=== PATIENT | male | born 1960 | race Caucasian/White ===

== ENCOUNTER 2017-01-25 10:41 | Emergency (ER) | payer OTHER ==
[~2017-01-25] VITALS: Ht 170.2 cm; Wt 83.5 kg
[2017-01-25 10:55] VITALS: Ht 170.2 cm; Wt 83.5 kg
[2017-01-25] MEDS ORDERED: AMOX500C2 PO (11:40)
--- NOTE | 2017-01-25 15:13 | ERD ---
ER Documentation Chief Complaint Chief Complaint RIGHT EAR PAIN HPI This is a 56-year-old male presenting to the emergency department for right earache 7 days. Patient states he began having muffled hearing to right ear and pain became worse over the last 3-4 days. Patient is now having pain rated 7/10 to right ear and describes pain as throbbing. Denies any discharge or bleeding. No cough, shortness breath or difficulty breathing. No sore throat or difficulty swallowing. No rhinitis or rhinorrhea. Patient states he went to his primary care provider and was told he has to go to an ENT specialist. Patient is now waiting for referral to see specialist. No past medical or surgical history. Patient takes no medications. ROS All systems reviewed and are negative except as per history of present illness. Medications Home Meds Active Scripts Amoxicillin* (Amoxicillin*) 500 Mg Cap, 500 MG PO TID for 10 Days, CAP Prov:NGUYEN MENDEZ NP 01/25/17 Allergies Allergies: Coded Allergies: No Known Allergy (Unverified , 01/25/17) PMhx/Soc Medical and Surgical Hx: pt denies Medical Hx, pt denies Surgical Hx Hx Alcohol Use: Yes Hx Substance Use: No Hx Tobacco Use: No Physical Exam Vitals Vital Signs Date Time Temp Pulse Resp B/P Pulse Ox O2 Delivery O2 Flow Rate FiO2 01/25/17 10:55 98.6 77 19 121/83 97 Physical Exam Const: No acute distress, alert Head: Atraumatic Eyes: Normal Conjunctiva ENT: Normal External Ears, Nose and Mouth. TMs normal bilaterally. No erythema or exudate posterior pharynx. No peritonsillar abscess. Neck: Full range of motion..~ No meningismus. Resp: Clear to auscultation bilaterally. No wheezing, rhonchi or crackles. No stridor or labored breathing. Cardio: Regular rate and rhythm, no murmurs Abd: Soft, non tender, non distended. Normal bowel sounds Skin: No petechiae or rashes Back: No midline or flank tenderness Ext: No cyanosis, or edema Neur: Awake and alert Psych: Normal Mood and Affect Procedures/MDM MDM: This is a 56-year-old male presenting to emergency department for right- sided earache 7 days. On physical exam TMs normal bilaterally. No mastoid tenderness. No facial swelling. Patient is afebrile and vital signs are stable. Patient is alert and nontoxic-appearing patient is waiting to see ENT specialist. Low suspicion for mastoiditis. Differential diagnosis includes but not limited to otitis media, otitis externa, viral pharyngitis, strep pharyngitis, dental pain, tooth abscess, TMJ, cerumen impaction and earache not otherwise specified. Patient is appropriate for outpatient management only given prescription for amoxicillin. Patient has possible acute otitis media. Patient will be treated for this and sent to ENT for reassessment and additional management. Resources provided. Return to ED for any high fever, chest pain, difficulty breathing, shortness breath, wheezing, vomiting, diarrhea, abdominal pain or any new or worsening symptoms. Patient verbalizes understanding. All questions answered at discharge. Slovak translation used during this encounter. Disclaimer: Inadvertent spelling and grammatical errors are likely due to EHR/ dictation software use and do not reflect on the overall quality of patient care. Also, please note that the electronic time recorded on this note does not necessarily reflect the actual time of the patient encounter. Departure Diagnosis: Primary Impression: Right ear pain Condition: Stable Patient Instructions: Otitis Media, Abx Tx (Adult) Referrals: RU MUNOZ [facility], [facility] () Usted se love hecho un examen mdico de control que le indica que no est en brynn condicin que requiera tratamiento urgente en el Departamento de Emergencia. Un estudio ms profundo y el tratamiento de martinez condicin pueden esperar sin ningn riesgo hasta que usted sea atendida/o en el consultorio de martinez mdico o brynn cl jessenia. Es responsabilidad suya arreglar brynn christophe para el seguimiento del alejandro. MANEJO DE CONDICIONES NO URGENTES EN EL FUTURO 1) Si usted tiene un mdico de atencin primaria: Usted debera llamar a martinez mdico de atencin primaria antes de venir al departamento de emergencia. Despus de las horas de consultorio, martinez doctor o martinez asociado/a est disponible por telfono. El mdico o enfermero de mary en el servicio telefnico puede asesorarle por pal medio para atender el problema, o alejandro contrario se puede programar brynn christophe. 2) Si usted no tiene un mdico de atencin primaria: Llame al mdico o clnica de referencia que aparece abajo marcie las horas de consultorio para hacer brynn christophe para que le vean. CLINICAS: [facility] [phone] [facility] [phone] [facility] [[email or web address] [phone] [place] [id number] [phone] [place] [id number] [phone] [facility] [phone] [address] [facility]. [facility] () ted se love hecho un examen mdico de control que le indica que no est en brynn condicin que requiera tratamiento urgente en el Departamento de Emergencia. Un estudio ms profundo y el tratamiento de martinez condicin pueden esperar sin ningn riesgo hasta que usted sea atendida/o en el consultorio de martinez mdico o brynn cl jessenia. Es responsabilidad suya arreglar brynn christophe para el seguimiento del alejandro. MANEJO DE CONDICIONES NO URGENTES EN EL FUTURO 1) Si usted tiene un mdico de atencin primaria: Usted debera llamar a martinez mdico de atencin primaria antes de venir al departamento de emergencia. Despus de las horas de consultorio, martinez doctor o martinez asociado/a est disponible por telfono. El mdico o enfermero de mary en el servicio telefnico puede asesorarle por pal medio para atender el problema, o alejandro contrario se puede programar brynn christophe. 2) Si usted no tiene un mdico de atencin primaria: Llame al mdico o condado institucions de referencia que aparece abajo marcie las horas de consultorio para hacer brynn christophe para que le vean. SI USTED NO PUEDE PAGAR PARA MYRIAM UN MEDICO puede ir a: [facility] [address] [place] [address] [facility] [address] [place] [address] [facility] [address] [place] [address] [facility] [address] [place], [place] [id number] Additional Instructions: Seguimiento con el especialista ENT hebert pronto maykel sea posible. Vuelva a Ed para cualquier fiebre wanda, dolor en el pecho, dificultad para respirar, respiracin entrecortada, sibilancias, vmitos, diarrea, dolor abdominal o cualquier sntoma nuevo o empeoramiento. Llame al doctor MAANA y isra brynn CHRISTOPHE PARA DENTRO DE 2-3 LAZARO.Dgale a la secretaria que nosotros le instruimos hacer esta christophe.Avise o llame si martinez condicin se empeora antes de la christophe. Regresa aqui si peor o no mejor. NGUYEN MENDEZ NP Jan 25, 2017 15:13
== END 2017-01-25 11:51 | disposition home or self-care (01) ==
LOC: FTE 10:41
DX: H92.01 Otalgia, right ear (principal)
CPT/HCPCS: 99283